=== PATIENT | female | born 1950 | race Caucasian/White ===

== ENCOUNTER 2019-01-02 13:07 | Inpatient (IN) | payer OTHER, MEDICAID ==
[~2019-01-02] VITALS: Ht 152.4 cm; Wt 82.6 kg
[~2019-01-02 13:07] MED LIST: ACET-2619 PO; ALBU3SOL49 IH; ATI.5 PO; BACL10TA4 PO; CALC-232 PO; DILT120C17 PO; DOCU-299 PO; DOXA1TAB PO; ESK300 PO; FERR-142 PO; FLONAS NS; FURO-572 PO; MAGN400S60 PO; OLOP5SOL OP; PANT40EC PO; SERT50TA PO; TEMA15CA24 PO; THEO200T22 PO; [UNRECOGNIZED DRUG - CODE] PO
--- NOTE | 2019-01-02 13:07 | NUR ---
Patient [facility] from [facility], transferred to bed 10. RN evaluating patient at bedside.
--- NOTE | 2019-01-02 13:09 | NUR ---
SENT FROM [facility]--NOTED BY STAFF PT CONFUSED, NOT ANSWERING QUESTIONS APPROPRIATELY PT, WANTED TO PT TO ER FOR FURTHER EVAL
[2019-01-02 13:15] VITALS: BP 130/48
--- NOTE | 2019-01-02 13:27 | NUR ---
Patient taken to CT scan via gurney by [facility].
--- NOTE | 2019-01-02 13:28 | NUR ---
PT TO CT VIA [facility]---AWAKE ALERT TO NAME PLACE PRESIDENT; UNABLE TO RECALL ALLERGIES TO MEDS.--FULL CLEAR SPEECH, MOVING BUE EQUALLY, DENIES NAILS OR N/V. PT JOHN [facility] NURSE STATED PT HAS BEEN SEEN CONFUSED >10 DAYS AGO.
--- NOTE | 2019-01-02 13:35 | NUR ---
OUT OF ROOM IN [facility] FOR CT SCAN
[2019-01-02] MEDS ORDERED: FLUT1POW3 IH (13:36)
[2019-01-02] MEDS ORDERED: OMEP20TC12 PO (13:36)
[2019-01-02] MEDS ORDERED: FURO-572 PO (13:36)
--- NOTE | 2019-01-02 13:40 | NUR ---
Patient returned from CT scan. RN re-evaluating patient at bedside.
--- NOTE | 2019-01-02 13:40 | NUR ---
Respiratory therapist at bedside for ABG and PHLEB at bedside for blood draw.
--- NOTE | 2019-01-02 13:45 | NUR ---
DR CARBAJAL AT BEDSIDE FOR PT EVALUATION
--- NOTE | 2019-01-02 13:55 | NUR ---
ATTEMPTING TO INSERT IV---PT CURRENTLY IS ORIENTED NAME PLACE TIME AND EVENT FULL CLEAR SPEECH--ADMITS TO PAIN UPON VOIDING
[2019-01-02 14:38] LABS: BASOPHILS % (AUTO) 0.4 % (0.0-2.0); EOSINOPHILS # (AUTO) 0.3 K/uL (0-0.4); EOSINOPHILS % (AUTO) 2.9 % (0.0-4.0); HEMATOCRIT 38.6 % (36-48); HEMOGLOBIN 11.8 g/dL (12.0-16.0); LYMPHOCYTES # (AUTO) 1.2 K/uL (2.5-16.5); LYMPHOCYTES % (AUTO) 10.7 % (20.5-51.1); MEAN CORPUSCULAR HEMOGLOBIN 27 pg (27-31); MEAN CORPUSCULAR HGB CONC 31 g/dL (33-37); MEAN CORPUSCULAR VOLUME 88.9 fL (80-94); MONOCYTES # (AUTO) 0.5 K/uL (0.8-1.0); MONOCYTES % (AUTO) 4.5 % (1.7-9.3); NEUTROPHILS # (AUTO) 9.1 K/uL (1.8-7.7); NEUTROPHILS % (AUTO) 81.5 % (42.2-75.2); RED BLOOD CELL COUNT(AUTO) 4.34 MIL/uL (4.20-5.40); RED CELL DISTRIBUTION WIDTH 17.1 % (11.6-13.7)
[2019-01-02 15:02] LABS: PROTHROMBIN TIME 9.3 secs (10.8-13.4)
[2019-01-02 15:07] LABS: THYROID STIMULATING HORMONE 2.04 uIU/mL (0.34-3.74)
[2019-01-02 15:08] LABS: ALBUMIN 2.7 g/dL (3.4-5.0); ANION GAP 10.9 (8-16); CARBON DIOXIDE 26.6 mmol/L (21-32); CREATININE 0.6 mg/dL (0.6-1.3); POTASSIUM 4.5 mmol/L (3.5-5.1); TOTAL BILIRUBIN 0.4 mg/dL (0.0-1.0)
[2019-01-02 15:17] LABS: WHITE BLOOD COUNT (AUTO) 9.4 K/uL (4.8-10.8)
[2019-01-02 15:18] LABS: PLATELET COUNT (AUTO) 347 K/uL (140-450)
[2019-01-02 15:22] LABS: APPEARANCE,URINE CLEAR (CLEAR); BILIRUBIN,URINE NEGATIVE (NEGATIVE); BLOOD, URINE NEGATIVE (NEGATIVE); COLOR,URINE YELLOW (YELLOW); LEUKOCYTE ESTERASE ,URINE NEGATIVE (NEGATIVE); NITRITE, URINE NEGATIVE (NEGATIVE); UGLUCOSE NEGATIVE (NEGATIVE)
[2019-01-02] MEDS ORDERED: PIPERACILLIN/TAZOBACTAM 3.375 GM in DEXTROSE 5% 50 ML IV SCH (15:55)
[2019-01-02] MEDS ORDERED: VANCOMYCIN 1,000 MG in DEXTROSE 5% 250 ML IV SCH (15:55)
[2019-01-02] MEDS ORDERED: ONDANSETRON 4 MG/2 ML VIAL IM/IVP PRN (16:05)
[2019-01-02] MEDS ORDERED: ACETAMINOPHEN 325 MG TAB PO PRN (16:05)
[2019-01-02] MEDS ORDERED: MEDICATION REC. PHARMACY CONS. 1 EA MISC MC PRN (16:15)
[2019-01-02] MEDS ORDERED: MELATONIN 3 MG TAB PO PRN (16:15)
--- NOTE | 2019-01-02 16:17 | NUR ---
Dr. Mullen evaluating patient at bedside.
[2019-01-02 16:32] LABS: BARBITURATE, URINE NEG. ng/ml (NEG <=200); BENZODIAZEPINE, URINE NEG. ng/mL (NEG <=200); CANNABINOID, URINE NEG. ng/mL (NEG <=50); COCAINE, URINE NEG. ng/mL (NEG <=300); OPIATE, URINE NEG. ng/mL (NEG <=2000); PHENCYCLIDINE SCREEN,URINE NEG. ng/mL (NEG <=25)
[2019-01-02 16:33] LABS: MAGNESIUM 2.7 mg/dL (1.8-2.4); PHOSPHORUS 3.5 mg/dL (2.5-4.9)
[2019-01-02] MEDS ORDERED: MAGNESIUM HYDROXIDE 2400 MG/30 ML UDC PO PRN (16:40)
[2019-01-02] MEDS ORDERED: ALBUTEROL SULFATE/IPRATROPIU 3 ML SOL IH PRN (16:40)
[2019-01-02] MEDS ORDERED: PIPERACILLIN/TAZOBACTAM 3.375 GM VIAL IV ONE (16:47)
[2019-01-02] MEDS ORDERED: BISACODYL 10 MG SUPP RC SCH (17:00)
--- NOTE | 2019-01-02 17:00 | NUR ---
RECEIVED BED SIDE REPORT FROM INDUSTRIAL SAFETY ENGINEER. PT ARRIVED IN [facility] ON 2L NC IN NO DISTRESS, SKIN PINK AND DRY, IV L HAND 24G RUNNING ZOSYN, SKIN INTACT, CONTRACTURES OF UPPER ARMS, BEDRIDDEN, A/O X4, OCAMPO CATH IN PLACE DRAINING WELL YELLOW URINE, PT CAME FROM [facility], DNR CODE, CALL LIGHT WITHIN REACH, BED LOW AND ALARM ON, WILL CONTINUE TO MONITOR
[2019-01-02] MEDS ORDERED: OLAN2.5T1 PO (17:01)
[2019-01-02] MEDS ORDERED: ESK300 PO (17:01)
--- NOTE | 2019-01-02 17:18 | NUR ---
CALLED DR STEVENSON, MADE HER AWARE VANCO WASN'T GIVEN IN ER, DOES SHE STILL WANT PT TO GET IT. DR STEVENSON STATED NO, PT DOES NOT NEED VANCO.
[2019-01-02] MEDS: NACL 0.9% 1,000 ML IV SCH (17:35)
[2019-01-02 17:42] VITALS: BP 124/53
[2019-01-02] MEDS ORDERED: AZITHROMYCIN 500 MG in DEXTROSE 5% 250 ML IV SCH (18:00)
--- NOTE | 2019-01-02 18:55 | NUR ---
CALLED [facility] AND RN CONFIRMED PT CONTINUES TO TAKE BREO ELIPTA FOR COPD, AND PARADAY FOR CHRONIC OCULAR ALLERGIES. RN STATED SHE WILL CALL BACK AND SEE IF THEY CAN BRING MEDS TO HOSPITAL
--- NOTE | 2019-01-02 19:25 | NUR ---
GAVE BED SIDE REPORT TO INSOLE CEMENTER RN, PT IN STABLE CONDITION
--- NOTE | 2019-01-02 19:40 | NUR ---
Received endorsement from AM shift RN; patient is A/Ox4, able to make needs known, bedbound, contracted upper extremities. Patient watching TV; introduced self, updated board. No SOB or distress noted, on O2 2LPM via nasal cannula. IV site noted on left hand, 24 gauge, intact. Cline in place Skin intact. Bed in the lowest position, call light within reach. Initial assessment done. Will continue to monitor.
[2019-01-02] MEDS: ALBUTEROL SULFATE/IPRATROPIU 3 ML SOL IH SCH (19:47)
[2019-01-02] MEDS ORDERED: OLOPATADINE HCL OP SCH (21:00)
[2019-01-02] MEDS ORDERED: DOXAZOSIN MESYLATE 1 MG PO SCH (21:00)
--- NOTE | 2019-01-02 21:40 | NUR ---
Due meds given; tolerated well.
[2019-01-02] MEDS: DOXAZOSIN 2 MG TAB PO SCH (21:42)
[2019-01-02] MEDS: OLANZapine 2.5 MG TAB PO SCH (21:43)
[2019-01-02] MEDS: DOCUSATE SODIUM 100 MG GELCAP PO SCH (21:43)
--- NOTE | 2019-01-02 23:55 | NUR ---
Vitals taken, no distress noted.
[2019-01-03] VITALS: BP 118/51
--- NOTE | 2019-01-03 01:55 | NUR ---
Patient noted with large BM at this time, brown and formed. Patient cleaned, linens and chux changed. Tolerated well.
--- NOTE | 2019-01-03 04:15 | NUR ---
Frequent checks made; patient asleep, eyes closed, visible chest rise and fall noted.
[2019-01-03] MEDS: PANTOPRAZOLE 40 MG TABEC PO SCH (05:43)
[2019-01-03] MEDS: ALBUTEROL SULFATE/IPRATROPIU 3 ML SOL IH SCH ×3 (07:06→19:00)
--- NOTE | 2019-01-03 07:25 | NUR ---
Endorsed patient to AM shift RN for continuity of care; patient in stable condition.
--- NOTE | 2019-01-03 07:30 | NUR ---
RECEIVED BED SIDE REORT FROM RESPIRATORY CARE PROGRAM DIRECTOR RN, PT IN STABLE CONDITION, WILL CONTINUE TO MONITOR
--- NOTE | 2019-01-03 07:30 | NUR ---
IV FOUND ON TABLE, WILL PUT IN NEW ONE, PRESSURE ADDED TO SITE TO CONTROL BLEEDING Addendum: 01/03/19 at 0941 by Baylee Dickson RN IV FOUND ON TABLE BEFORE SHIFT CHANGE.
[2019-01-03 08:00] VITALS: BP 119/46
[2019-01-03 08:16] LABS: HEMATOCRIT 36.7 % (36-48); HEMOGLOBIN 11.6 g/dL (12.0-16.0); MEAN CORPUSCULAR HEMOGLOBIN 28 pg (27-31); MEAN CORPUSCULAR HGB CONC 32 g/dL (33-37); MEAN CORPUSCULAR VOLUME 88.8 fL (80-94); PLATELET COUNT (AUTO) 289 K/uL (140-450); RED BLOOD CELL COUNT(AUTO) 4.13 MIL/uL (4.20-5.40); RED CELL DISTRIBUTION WIDTH 16.7 % (11.6-13.7); WHITE BLOOD COUNT (AUTO) 14.7 K/uL (4.8-10.8)
[2019-01-03 08:25] LABS: FOLIC ACID 15.2 ng/mL (>3.0)
[2019-01-03] MEDS: NACL 0.9% 1,000 ML IV SCH ×2 (08:31→20:43)
[2019-01-03 08:36] LABS: CARBON DIOXIDE 30.4 mmol/L (21-32); CREATININE 0.5 mg/dL (0.6-1.3)
[2019-01-03 08:50] LABS: ANION GAP 9.4 (8-16); POTASSIUM 3.8 mmol/L (3.5-5.1)
--- NOTE | 2019-01-03 08:58 | NUR ---
PATIENT HAS BEEN SCREENED AND CATEGORIZED MODERATE NUTRITION RISK. PATIENT WILL BE SEEN WITHIN 3-5 DAYS OF ADMISSION. 01/05/19[address]
[2019-01-03] MEDS ORDERED: AZITHROMYCIN 250 MG TAB PO SCH (09:00)
[2019-01-03] MEDS ORDERED: NON-FORMULARY ITEM (Calcium/Vitamin D (Calcium 500 + D 500 Mg-200 Iu) 1 TAB) PO SCH (09:00)
[2019-01-03] MEDS ORDERED: NON-FORMULARY ITEM (Fluticasone/Vilanterol (Breo Ellipta 100-25 Mcg INH) 1 POW) IH SCH (09:00)
[2019-01-03] MEDS ORDERED: DILTIAZEM HCL 120 MG PO SCH (09:00)
[2019-01-03] MEDS ORDERED: NON-FORMULARY ITEM (Omeprazole (Omeprazole) 20 MG) PO SCH (09:00)
[2019-01-03 09:01] LABS: EOSINOPHILS % (MANUAL) 3 % (0-4); LYMPHOCYTES % (MANUAL) 10 % (20-46); MONOCYTES % (MANUAL) 2 % (5-12)
[2019-01-03] MEDS ORDERED: FERROUS SULFATE 325 MG TABEC PO SCH (09:30)
[2019-01-03] MEDS: DOCUSATE SODIUM 100 MG GELCAP PO SCH ×2 (09:46→20:08)
[2019-01-03] MEDS: DILTIAZEM 120 MG CAPER PO SCH (09:46)
[2019-01-03] MEDS: LACTOBACILLUS RHAMNOSUS GG 1 EACH CAP PO SCH (09:47)
[2019-01-03] MEDS: CALCIUM CARB/VIT-D 500 MG/200 IU 1 TAB PO SCH (09:47)
[2019-01-03] MEDS: SERTRALINE 50 MG TAB PO SCH (09:48)
[2019-01-03] MEDS: LITHIUM CARBONATE 300 MG TAB PO SCH (09:48)
[2019-01-03] MEDS: ASCORBIC ACID 500 MG TAB PO SCH (09:50)
--- NOTE | 2019-01-03 10:00 | NUR ---
ATTEMPTED TO START IV ONE TIME. CALLED BROADCASTER ARTHUR. SHE TRIED 3 TIMES BUT COULD NOT GET IT IN. ARTHUR SAID SHE WOULD COME BACK LATER AND TRY AGAIN. PT TOLERATED PROCEDURE WELL. PHYSICAL THERAPY AT BEDSIDE.
[2019-01-03 10:20] LABS: MAGNESIUM 2.4 mg/dL (1.8-2.4); PHOSPHORUS 3.2 mg/dL (2.5-4.9)
--- NOTE | 2019-01-03 12:45 | NUR ---
CLINICAL INSTRUCTOR FROM [facility] GOT 20G IV ON LEFT FOREARM. FLUSHES WELL, GOOD BLOOD RETURN. NS RUNNING AT 60ML/HR
--- NOTE | 2019-01-03 13:08 | NUR ---
PT REFUSED TO BE REPOSITIONED. PT HAS STAYED IN SUPINE POSITION SINCE YESTERDAY. EDUCATED PT ON THE IMPORTANCE OF REPOSITIONING AND THE PREVENTION OF BED SORES BECAUSE OF NOT REPOSITIONING OFTEN. PT STILL REFUSED
--- NOTE | 2019-01-03 15:00 | NUR ---
PT REFUSED TO BE REPOSITIONED, EDUCATED PT AGAIN ON THE IMPORTANCE OF REPOSITIONING AND THE PREVENTION OF BED SORES, PT STILL REFUSED. ASSESSED SKIN, SKIN INTACT IN SACRAL AREA AND PRESSURE AREAS. OPTIFOAM DRESSING APPLIED AND DATED. APPLIED INTERDRY IN BETWEEN ABDOMINAL FOLDS FOR PREVENTIVE MEASURE.
[2019-01-03 15:29] LABS: CHOL/HDL RATIO 3.2 (1-4.5)
[2019-01-03 16:00] VITALS: BP 124/54
--- NOTE | 2019-01-03 18:09 | NUR ---
PT SLEEPING COMFORTABLY IN BED. WOKE PT UP FOR DINNER AND PT REFUSED. MEREDITH LEFT AT BEDSIDE. TOLD HER WHENEVER SHE FEELS HUNGRY AND TO LET US KNOW WHEN SHE WANTS TO EAT SO WE CAN ASSIST WITH FEEDING. PT VERBALIZES UNDERSTANDING, CALL LIGHT WITHIN REACH, WILL CONTINUE TO MONITOR
--- NOTE | 2019-01-03 18:17 | NUR ---
SPOKE WITH . PT HAS A SPUTUM ORDER PUT IN YESTERDAY HOWEVER PT HAS NO FEVER, NO PRODUCTIVE COUGH. UNABLE TO GET SPUTUM
--- NOTE | 2019-01-03 19:12 | NUR ---
GAVE BED SIDE REPORT TO CINNAMON GRINDER RN. PT SLEEPING COMFORTABLY IN BED IN SUPINE POSITION. PT DID NOT WANT HOB ELEVATED. IN NO RESPIRATORY DISTRESS. ON 2L NC IN NO RESPIRATORY DISTRESS. CALL LIGHT WITHIN REACH.
--- NOTE | 2019-01-03 19:14 | NUR ---
RECEIVED BEDSIDE REPORT FROM DAY SHIFT RN. PT IS SLEEPING COMFORTABLY IN BED. RESPIRATIONS ARE EQUAL AND UNLABORED. PATIENT IS ON NC 2L O2. PT IV ON L FA 20G IVF INFUSING PER ORDERS. PER NURSE PATIENTS SKIN IS INTACT. PT IS BEDBOUND. OCAMPO CATH IS DRAINING CLEAR YELLOW URINE. PT WITH LOWER EXTREMITIES CONTRACTURES. WHITE BOARD UPDATED. SAFETY MEASURES ARE IN PLACE. WILL CONTINUE TO MONITOR.
--- NOTE | 2019-01-03 19:22 | NUR ---
RECEIVED PATIENT ON 2L NC, PULSE OX SAT 92%. PATIENT REFUSING ASSESSMENT; REFUSING LUNG AUSCULTATION. REFUSING BREATHING TREATMENT AT THIS TIME. RN NOTIFIED. ENCOURAGED PATIENT TO SPONTANEOUSLY EXPECTORATE SPUTUM FOR LAB SPECIMEN. NO ACUTE RESPIRATORY DISTRESS NOTED AT THIS TIME. WILL CONTINUE TO MONITOR.
[2019-01-03] MEDS: OLANZapine 2.5 MG TAB PO SCH (20:08)
--- NOTE | 2019-01-03 20:08 | NUR ---
SCHEDULED MEDICATIONS GIVEN. PT TOLERATED WELL. ROCEPHIN INFUSING PER ORDERS. DAVON HELD FOR B/P: 110/44 HR 75. WILL ASSIST PATIENT WITH DINNER.
[2019-01-03] MEDS: DOXAZOSIN 2 MG TAB PO SCH (20:11)
--- NOTE | 2019-01-03 21:00 | NUR ---
PT REFUSED TO BE REPOSITIONED, EDUCATED PT ON THE IMPORTANCE OF REPOSITIONING AND THE PREVENTION OF BED SORES, PT STILL REFUSED. ASSESSED SKIN, SKIN INTACT IN SACRAL AREA. OPTIFOAM IS IN PLACE. C/D/I. CALL LIGHT WITHIN REACH. WILL CONTINUE TO MONITOR.
--- NOTE | 2019-01-03 22:35 | NUR ---
PATIENT IS SLEEPING COMFORTABLY IN BED. ON NC 2L O2. RESPIRATIONS ARE EQUAL AND UNLABORED. SAFETY MEASURES ARE IN PLACE. CALL LIGHT WITHIN REACH. WILL CONTINUE TO MONITOR.
[2019-01-03 23:26] VITALS: BP 110/44
--- NOTE | 2019-01-03 23:27 | NUR ---
VITAL SIGNS ARE WITHIN NORMAL LIMITS. ALL NEEDS MET AT THIS TIME. CALL LIGHT WITHIN REACH.
--- NOTE | 2019-01-04 02:06 | NUR ---
GAVE PATIENT COFFEE PER REQUEST. PT TOLERATED WELL. PATIENT STATES WILL TRY TO GET SOME SLEEP. ALL NEEDS MET AT THIS TIME. CALL LIGHT WITHIN REACH.
--- NOTE | 2019-01-04 05:00 | NUR ---
PATIENT CLEANED AND REPOSITION FOR COMFORT. CALL LIGHT WITHIN REACH.
[2019-01-04] MEDS: PANTOPRAZOLE 40 MG TABEC PO SCH (06:09)
[2019-01-04] MEDS: ALBUTEROL SULFATE/IPRATROPIU 3 ML SOL IH SCH ×3 (06:54→19:36)
--- NOTE | 2019-01-04 07:05 | NUR ---
PT REFUSES SPUTUM SAMPLE
[2019-01-04 07:07] LABS: HEMATOCRIT 35.9 % (36-48); MEAN CORPUSCULAR HEMOGLOBIN 28 pg (27-31); MEAN CORPUSCULAR HGB CONC 31 g/dL (33-37); MEAN CORPUSCULAR VOLUME 90.7 fL (80-94); PLATELET COUNT (AUTO) 371 K/uL (140-450); RED BLOOD CELL COUNT(AUTO) 3.97 MIL/uL (4.20-5.40); RED CELL DISTRIBUTION WIDTH 17.5 % (11.6-13.7)
[2019-01-04 07:19] LABS: MAGNESIUM 2.4 mg/dL (1.8-2.4); PHOSPHORUS 3.4 mg/dL (2.5-4.9)
--- NOTE | 2019-01-04 07:25 | NUR ---
RECEIVED REPORT FROM ANIMAL RIDES MANAGER RN AT BEDSIDE. PATIENT ON 2L NC, PULSE OX SAT 92%. AAOX3. ENCOURAGED PATIENT TO SPONTANEOUSLY EXPECTORATE SPUTUM FOR LAB SPECIMEN. NO ACUTE RESPIRATORY DISTRESS NOTED AT THIS TIME. WILL CONTINUE TO MONITOR.
--- NOTE | 2019-01-04 07:33 | NUR ---
GAVE BEDSIDE REPORT TO DAY SHIFT RN. PT ENDORSED IN STABLE CONDITION.
[2019-01-04 07:56] LABS: EOSINOPHILS % (MANUAL) 3 % (0-4); LYMPHOCYTES % (MANUAL) 7 % (20-46); MONOCYTES % (MANUAL) 5 % (5-12)
[2019-01-04 08:00] VITALS: BP 122/52
[2019-01-04 08:14] LABS: ANION GAP 8.4 (8-16); CARBON DIOXIDE 30.6 mmol/L (21-32)
[2019-01-04 08:15] LABS: CREATININE 0.4 mg/dL (0.6-1.3)
[2019-01-04] MEDS: DILTIAZEM 120 MG CAPER PO SCH (09:04)
[2019-01-04] MEDS: DOCUSATE SODIUM 100 MG GELCAP PO SCH ×2 (09:04→21:02)
[2019-01-04] MEDS: ASCORBIC ACID 500 MG TAB PO SCH (09:05)
[2019-01-04] MEDS: LITHIUM CARBONATE 300 MG TAB PO SCH (09:05)
[2019-01-04] MEDS: FERROUS SULFATE 325 MG TABEC PO SCH (09:05)
[2019-01-04] MEDS: CALCIUM CARB/VIT-D 500 MG/200 IU 1 TAB PO SCH (09:05)
[2019-01-04] MEDS: SERTRALINE 50 MG TAB PO SCH (09:05)
[2019-01-04] MEDS: LACTOBACILLUS RHAMNOSUS GG 1 EACH CAP PO SCH (09:06)
--- NOTE | 2019-01-04 09:57 | NUR ---
ADMINISTERED MORNING MEDS TO PT. PT TOLERATED WELL. WILL CONTINUE TO ROUND FREQUENTLY ON PT. BED IN LOW POSITION, CALL LIGHT WITHIN REACH. BED ALARM ON
[2019-01-04] MEDS ORDERED: BENZONATATE 100 MG CAPLF PO PRN (10:30)
--- NOTE | 2019-01-04 12:05 | NUR ---
PT IN BED WITH REGULATORY AFFAIRS SPECIALIST ASSISTING WITH LUNCH. PT TOLERATING MEAL WELL. NO SIGNS OF DISTRESS OR PAIN. WILL CONTINUE TO ROUND FREQUENTLY ON PT.
[2019-01-04] MEDS: PIPER/TAZO 3.375GM/D5W PREMIX 50 ML IV SCH ×3 (12:33→23:37)
--- NOTE | 2019-01-04 14:27 | NUR ---
PT ASLEEP IN BED. NO SIGNS OF PAIN OR DISTRESS. WILL MONITOR FREQUENTLY
[2019-01-04 16:00] VITALS: BP 142/52
--- NOTE | 2019-01-04 16:20 | NUR ---
DC PLANNING: TESSA FAXED CLINICAL PACKET TO [facility] FOR POSSIBLE DC TOMORROW @ F . TESSA SPOKE WITH GT ( PICKING BELT OPERATOR @ [facility]) @ P , PATIENT ROOM NUMBER IS [id number].
--- NOTE | 2019-01-04 17:28 | NUR ---
PT RESTING IN BED WATCHING TV. NO COMPLAINTS OF PAIN AT THIS TIME. WILL ROUND FREQUENTLY ON PT.
[2019-01-04] MEDS: NACL 0.9% 1,000 ML IV SCH (18:14)
--- NOTE | 2019-01-04 19:32 | NUR ---
ENDORSED PT TO ADJUNCT PHLEBOTOMY INSTRUCTOR FOR CONTINUITY OF CARE. PT IN STABLE CONDITION AT THIS TIME.
--- NOTE | 2019-01-04 19:35 | NUR ---
RECEIVED FROM AM RN IN BED AWAKE AND WITH GOOD AFFECT. ABLE TO VERBALIZE NEEDS WELL. DX. PNA. IVF SITE TO LFA#20 . INTACT AND WITH GOOD BLOOD RETURN. BED ALARM ON. ISOLATION PRECAUTION PROTOCOL IN PLACE RT HX. MRSA NARES. CALL LIGHT WITH IN REACH. HX. CEREBRAL PALSY . AFEBRILE. CARE PLANS FOR THE NIGHT DISCUSSED WITH HER. WILL MONITOR FREQUENTLY.
[2019-01-04 20:55] VITALS: BP 132/55
[2019-01-04] MEDS: DOXAZOSIN 2 MG TAB PO SCH (21:01)
[2019-01-04] MEDS: OLANZapine 2.5 MG TAB PO SCH (21:02)
--- NOTE | 2019-01-04 21:24 | NUR ---
ALL P.O. MEDS SWALLOWED WELL. KEPT WARM AND COMFORTABLE. NO SOB. DENIES PAIN AT THIS TIME. CALL LIGHT WITH IN REACH. ABLE TO VERBALIZE NEEDS WELL.
--- NOTE | 2019-01-05 00:27 | NUR ---
VITAL SIGNS TAKEN. SLEEPING WELL. NO COMPLAINTS DONE.
--- NOTE | 2019-01-05 02:45 | NUR ---
PT. TURNED TO SIDES AND CLEANED UP BY FLEET MAINTENANCE MANAGER AND ME RT WITH BIG BM. BEDDING CHANGED. ABLE TO VERBALIZE WHAT SHE WANTS WELL. ABLE TO USE CALL LIGHT FOR HELP. NEEDS WILL BE MET. CONTRACTED LOWER EXTREMITIES RT CEREBRAL PALSY .
--- NOTE | 2019-01-05 03:50 | NUR ---
PT. SLEEPING WELL. WAKES UP EASILY WHEN CALLED BY NAME. NO SOB. AFEBRILE. CALL LIGHT WITH IN REACH AT ALL TIMES AND USES IT WELL. IVF SITE INTACT AND WITH GOOD BLOOD RETURN.
[2019-01-05] MEDS: PIPER/TAZO 3.375GM/D5W PREMIX 50 ML IV SCH ×2 (05:11→12:16)
[2019-01-05] MEDS: PANTOPRAZOLE 40 MG TABEC PO SCH (05:11)
--- NOTE | 2019-01-05 06:05 | NUR ---
PT. SLEEPING WELL THIS SHIFT. NO COMPLAINTS DONE. NEEDS ANTICIPATED AND MET. ABLE TO USE CALL LIGHT FOR HELP. NO SOB. WILL ENDORSE TO AM RN FOR CONTINUITY OF CARE . A/O X3 WITH FORGETFULNESS AT TIMES. HX. CEREBRAL PALSY. [facility] .
[2019-01-05 06:47] LABS: BASOPHILS % (AUTO) 0.1 % (0.0-2.0); EOSINOPHILS # (AUTO) 0.4 K/uL (0-0.4); EOSINOPHILS % (AUTO) 3.8 % (0.0-4.0); HEMATOCRIT 35.8 % (36-48); HEMOGLOBIN 10.8 g/dL (12.0-16.0); LYMPHOCYTES # (AUTO) 0.7 K/uL (2.5-16.5); LYMPHOCYTES % (AUTO) 6.6 % (20.5-51.1); MEAN CORPUSCULAR HEMOGLOBIN 27 pg (27-31); MEAN CORPUSCULAR HGB CONC 30 g/dL (33-37); MEAN CORPUSCULAR VOLUME 90.4 fL (80-94); MONOCYTES # (AUTO) 0.5 K/uL (0.8-1.0); MONOCYTES % (AUTO) 4.8 % (1.7-9.3); NEUTROPHILS # (AUTO) 9.1 K/uL (1.8-7.7); NEUTROPHILS % (AUTO) 84.7 % (42.2-75.2); PLATELET COUNT (AUTO) 315 K/uL (140-450); RED BLOOD CELL COUNT(AUTO) 3.96 MIL/uL (4.20-5.40); RED CELL DISTRIBUTION WIDTH 17.2 % (11.6-13.7); WHITE BLOOD COUNT (AUTO) 10.7 K/uL (4.8-10.8)
[2019-01-05 06:56] LABS: ANION GAP 9.1 (8-16); CARBON DIOXIDE 29.7 mmol/L (21-32); CREATININE 0.6 mg/dL (0.6-1.3); POTASSIUM 3.8 mmol/L (3.5-5.1)
[2019-01-05 06:57] LABS: MAGNESIUM 2.3 mg/dL (1.8-2.4); PHOSPHORUS 3.4 mg/dL (2.5-4.9)
--- NOTE | 2019-01-05 07:10 | NUR ---
RECEIVED BEDSIDE SHIFT REPORT FROM NIGHT NURSE. PT IS AOX3 NOT ORIENTED TO DATE. PT IS CURRENTLY IRRITABLE WITH NO AGREEMENT TO ENGAGE IN HEALTH CARE ACTIVITIES SUCH HELPING TO LIFT ARM TO CHECK IV AND STATES AGGRESSIVELY SHE DOES NOT WANT ANYONE TOUCHING HER LEGS OR MOVING HER AROUND A LOT. PT ALSO REFUSES TO REPOSITION EVEN WHEN OFFERING TO PROVIDE TOTAL ASSISTANCE WITH REPOSITIONING. PT REFUSES TO ALTERNATE PRESSURE AREAS. PT IS STABLE AT THIS TIME WITH NO OBVIOUS SIGNS OF DISTRESS. SHE HAS A LEFT FOREARM IV INFUSING NS AT 60ML/HR THAT IS ASYMPTOMATIC AND PATENT. SHE HAS A OPTIFOAM DRESSING TO COCCY[employer] THAT I PEELED BACK TO ASSESS DRAINAGE AND WOUND BED AND FOUND NO DRAINAGE OR IMPAIRED SKIN INTEGRITY UNDER DRESSING. PT IS ON 2L NC AND HAS NO COMPLAINTS OF PAIN AND HAS NO REQUESTS BESIDES AN ORANGE JUICE WHICH I PROVIDED FOR HER. OCAMPO LINE TRACED TO ORIGIN WITH NO IRRITATION OR OTHER FOUND SKIN ISSUES. OCAMPO DRAINING CLEAR YELLOW URINE.
[2019-01-05 08:00] VITALS: BP 162/65
[2019-01-05] MEDS: ALBUTEROL SULFATE/IPRATROPIU 3 ML SOL IH SCH ×2 (08:09→14:05)
[2019-01-05] MEDS ORDERED: VITC500 PO (08:43)
[2019-01-05] MEDS ORDERED: ZOS3.375PM IV (08:43)
[2019-01-05] MEDS ORDERED: FER325 PO (08:43)
[2019-01-05] MEDS ORDERED: LACT10CA PO (08:43)
[2019-01-05] MEDS ORDERED: BENZ100C6 PO (08:43)
[2019-01-05] MEDS: CALCIUM CARB/VIT-D 500 MG/200 IU 1 TAB PO SCH (09:42)
[2019-01-05] MEDS: LITHIUM CARBONATE 300 MG TAB PO SCH (09:42)
[2019-01-05] MEDS: LACTOBACILLUS RHAMNOSUS GG 1 EACH CAP PO SCH (09:42)
[2019-01-05] MEDS: SERTRALINE 50 MG TAB PO SCH (09:42)
[2019-01-05] MEDS: ASCORBIC ACID 500 MG TAB PO SCH (09:42)
[2019-01-05] MEDS: FERROUS SULFATE 325 MG TABEC PO SCH (09:42)
[2019-01-05] MEDS: DOCUSATE SODIUM 100 MG GELCAP PO SCH (09:43)
[2019-01-05] MEDS: DILTIAZEM 120 MG CAPER PO SCH (09:43)
--- NOTE | 2019-01-05 09:47 | NUR ---
ADMINISTERED MEDICATIONS. PT IS FREE OF OBVIOUS SIGNS OF DISTRESS WITH BREATHING SYMMETRICAL AND UNLABORED. ASSISTED PT WITH HELP OF ACCOUNT FINANCIAL MANAGER TO CLEAN SOILED BEDDINGS AND REPLACE LINENS AFTER BOWEL MOVEMENT. PT IS STILL NOT AGREEABLE TO ASSISTING IN REPOSITIONING OR MOVING HERSELF WITH IRRITATION UPON REQUEST TO MOVE ANY PART OF HER BODY. PT IS NOT COMPLIANT STILL WITH REPOSITIONING TO OFFLOAD PRESSURE AREAS.
[2019-01-05] MEDS: NACL 0.9% 1,000 ML IV SCH (10:44)
--- NOTE | 2019-01-05 12:38 | NUR ---
REMOVED OCAMPO CATHETER, TIP OF CATHETER INTACT WITH YELLOW CLEAR URINE PRESENT IN BAG. REMOVED STATLOCK. PT TOLERATED WELL. 840 ML URINE IN DRAINAGE BAG.
--- NOTE | 2019-01-05 12:45 | NUR ---
CASE MANAGEMENT: TESSA SPOKE WITH JOYCE ( DISPATCH @ [facility] ) @ [phone]. TRANSPORTATION HAS BEEN ARRANGED WITH REFERENCE NUMBER [id number]. [facility] TE[facility] WILL CALL BACK WITH [facility]. PATIENT's SON ( UZIEL) @ HAS BEEN MADE AWARE AND AGREEABLE TO DISCHARGE.
--- NOTE | 2019-01-05 13:49 | NUR ---
GAVE REPORT TO LENARD AT [facility].
--- NOTE | 2019-01-05 15:28 | NUR ---
LEFT VIA [facility]. PT IS STABLE LEFT FOREARM IV SALINE FLUSHED AND INTACT. PT IS FREE OF SIGNS OF OBVIOUS DISTRESS WITH BREATHING EQUAL AND UNLABORED. ALL BELONGINGS WITH PATIENT AT TIME OF DISCHARGE.
== END 2019-01-05 15:28 | DRG 193 ==
LOC: MED 13:07 → MTU 16:04
PROVIDERS: ADMIT Family Medicine; ATTEND Family Medicine
DX: J18.9 Pneumonia, unspecified organism (principal); E43 Unspecified severe protein-calorie malnutrition; E66.9 Obesity, unspecified; K21.9 Gastro-esophageal reflux disease without esophagitis; J44.9 Chronic obstructive pulmonary disease, unspecified; F20.9 Schizophrenia, unspecified; F31.9 Bipolar disorder, unspecified; G80.9 Cerebral palsy, unspecified; I10 Essential (primary) hypertension; E83.41 Hypermagnesemia; K59.00 Constipation, unspecified; E87.8 Other disorders of electrolyte and fluid balance, not elsewhere classified; D50.9 Iron deficiency anemia, unspecified; Z68.35 Body mass index [BMI] 35.0-35.9, adult; Z71.3 Dietary counseling and surveillance; Z88.5 Allergy status to narcotic agent; Z88.8 Allergy status to other drugs, medicaments and biological substances; Z79.899 Other long term (current) drug therapy
CPT/HCPCS: 36415; 36600; 70450; 71045; 80048; 80053; 80178; 80305; 81003; 82140; 82150; 82272; 82550; 82553; 82607; 82728; 82746; 82803; 82948; 83036; 83540; 83605; 83690; 83735; 83874; 83880; 84100; 84443; 84484; 85025; 85045; 85610; 85730; 87040; 87081; 87086; 93005; 94640; 97161-GP; 99285; J0456; J0696; J2405; J2543; J7030; J7060; J7620; Q0092